=== PATIENT | female | born 1945 | race Two or more races ===

== ENCOUNTER 2024-03-19 18:54 | Inpatient (IN) | payer MEDICARE, MEDICAID ==
[~2024-03-19] VITALS: Ht 162.6 cm; Wt 75.1 kg
[2024-03-19] MEDS: ALBUTEROL SULFATE 2.5 MG/0.5 ML NEB SOLUTION NEB ONE (19:16)
[2024-03-19] MEDS: IPRATROPIUM BROMIDE 0.5 MG/2.5 ML NEB SOLUTION NEB ONE (19:17)
[2024-03-19 19:20] VITALS: PULSE 114; RESP 18; O2SAT 94
[2024-03-19] MEDS ORDERED: DULA1.5P SQ (19:22)
[2024-03-19] MEDS ORDERED: DICL100G60 TP (19:22)
[2024-03-19] MEDS ORDERED: ASPI-1450 PO (19:22)
[2024-03-19] MEDS ORDERED: CLOP75TA60 PO (19:22)
[2024-03-19] MEDS ORDERED: ATOR40TA28 PO (19:22)
[2024-03-19] MEDS ORDERED: METO25XL PO (19:22)
[2024-03-19] MEDS ORDERED: MELA3CAP2 PO (19:22)
[2024-03-19] MEDS ORDERED: EZET10TA57 PO (19:22)
[2024-03-19] MEDS ORDERED: PANT-31 PO (19:22)
[2024-03-19] MEDS ORDERED: MULT-1390 PO (19:22)
[2024-03-19] MEDS ORDERED: INSLAN SQ (19:22)
[2024-03-19] MEDS ORDERED: ONDA-104 PO (19:22)
[2024-03-19] MEDS ORDERED: ALBU18HF12 IH (19:22)
[2024-03-19] MEDS ORDERED: CALC-1124 PO (19:22)
[2024-03-19 19:35] VITALS: PULSE 114; RESP 18; O2SAT 97
[2024-03-19] MEDS: MethylPREDNISolone SOD SUCC 125 MG/2 ML VIAL IVP ONE (19:43)
[2024-03-19 19:53] LABS: BASOPHILS % (AUTO) 0.5 % (0.0-2.0); EOSINOPHILS % (AUTO) 0 % (1.0-6.0); HEMATOCRIT 35.6 % (36-46); LYMPHOCYTES # (AUTO) 0.7 K/uL (1.0-4.8); LYMPHOCYTES % (AUTO) 3.5 % (22.0-44.0); MEAN CORPUSCULAR HEMOGLOBIN 23.8 pg (26.0-34.0); MEAN CORPUSCULAR HGB CONC 30.9 G/dL (31.0-37.0); MEAN CORPUSCULAR VOLUME 77 fL (80-100); MONOCYTES # (AUTO) 1.6 K/uL (0.1-1.0); MONOCYTES % (AUTO) 8.4 % (2.0-9.0); PLATELET COUNT (AUTO) 399 K/uL (150-450); RED BLOOD CELL COUNT(AUTO) 4.63 MIL/uL (4.00-5.20); RED CELL DISTRIBUTION WIDTH 17.4 % (11.5-14.5); WHITE BLOOD COUNT (AUTO) 19.4 K/uL (4.5-11.0)
[2024-03-19 19:59] LABS: NEUTROPHILS % (AUTO) 87.6 % (40.0-70.0)
[2024-03-19 19:59] LABS: COVID AG,FIA SOURCE NASAL SWAB
[2024-03-19 20:01] LABS: ANION GAP 9 mmol/L (8-16); CALCIUM, TOTAL 8.6 mg/dL (8.8-10.5); CARBON DIOXIDE 26 mmol/L (22-29); CHLORIDE 100 mmol/L (98-107); GLOMERULAR FILTR. RATE CALC 44 mL/min (>60); GLUCOSE,RANDOM 236 mg/dL (70-110); POTASSIUM 4.3 mmol/L (3.5-5.1); SODIUM SERUM 135 mmol/L (136-145); UREA NITROGEN, BLOOD 26 mg/dL (7-18)
[2024-03-19] MEDS ORDERED: BACI1CAP PO (20:11)
[2024-03-19] MEDS ORDERED: ASPI-1444 PO (20:11)
[2024-03-19] MEDS ORDERED: ZINC28PA TP (20:11)
[2024-03-19] MEDS ORDERED: MELA3TAB89 PO (20:11)
[2024-03-19] MEDS ORDERED: CALC-1271 PO (20:11)
[2024-03-19] MEDS ORDERED: MULT-664 PO (20:11)
[2024-03-19 20:13] LABS: ALANINE AMINOTRANSFERASE 23 U/L (12-78); ALBUMIN 2.5 g/dL (3.4-5.0); ALKALINE PHOSPHATASE 125 U/L (46-116); ASPARTATE AMINOTRANSFERASE 47 U/L (15-37); BILIRUBIN,TOTAL 1.4 mg/dL (0.1-1.0); CREATINE KINASE, TOTAL ONLY 48 U/L (26-192); TOTAL PROTEIN, SERUM 6.8 g/dL (6.4-8.2); TROPONIN I-HIGH SENSITIVITY 16 ng/L (<51)
[2024-03-19 20:22] LABS: SARS-COV2 (COVID) ANTIGEN,FIA Negative (Negative)
[2024-03-19] MEDS: SODIUM CHLORIDE 0.9% 1,000 ML IV ONE (20:22)
[2024-03-19 20:24] LABS: B-TYPE NATRIURETIC PEPTIDE 1540 pg/mL (0-100)
[2024-03-19 20:26] LABS: INFLUENZA TYPE A NEGATIVE FOR TYPE A (NEGATIVE); INFLUENZA TYPE B NEGATIVE FOR TYPE B (NEGATIVE)
[2024-03-19 20:30] LABS: RBC MORPHOLOGY COMMENT ABNORMAL RBC MORPH
[2024-03-19 20:34] LABS: APPEARANCE,URINE CLEAR (CLEAR); BILIRUBIN,URINE NEGATIVE (NEGATIVE); COLOR,URINE YELLOW (YELLOW); GLUCOSE, URINE (UA) NEGATIVE (NEGATIVE); KETONES,URINE NEGATIVE (NEGATIVE); LEUKOCYTE ESTERASE ,URINE TRACE (NEGATIVE); NITRATE,URINE NEGATIVE (NEGATIVE); OCCULT BLOOD,URINE NEGATIVE (NEGATIVE); PH,URINE 5.5 (5.0-8.0); PROTEIN,URINE 30-70 mg/dL (NEGATIVE); SPECIFIC GRAVITIY, URINE 1.023 (1.003-1.030)
[2024-03-19] MEDS: CefTRIAXone 1 GM/DEXTROSE 50 ML IV SCH (20:45)
[2024-03-19] MEDS ORDERED: 0.9% SODIUM CHLORIDE 10 ML SYRINGE IVP PRN (20:45)
[2024-03-19] MEDS ORDERED: ONDANSETRON 4 MG TABLET PO PRN (20:45)
[2024-03-19 20:48] LABS: BACTERIA,URINE Moderate /HPF (None Seen); RBC,URINE None Seen /HPF (0-2); SQUAMOUS EPITHELIAL CELL,UR Rare /LPF (None Seen); WBC,URINE 0-2 /HPF (0-5)
[2024-03-19] MEDS: CefTRIAXone 1 GM/DEXTROSE 50 ML IV ONE (20:55)
[2024-03-19] MEDS: SODIUM CHLORIDE 0.9% 500 ML IV ONE (20:55)
[2024-03-19] MEDS ORDERED: DEXTROSE 50%-WATER 25 GM/50 ML SYRINGE IVP PRN (21:00)
[2024-03-19] MEDS: INSULIN GLARGINE,HUM.REC.ANLOG 100 UNITS/ML SQ SCH (21:13)
[2024-03-19] MEDS: DOXYCYCLINE HYCLATE 100 MG in DEXTROSE 5%-WATER 100 ML IV SCH (21:16)
[2024-03-19] MEDS: AZITHROMYCIN 500 MG/NS 250 ML IV ONE (21:16)
[2024-03-19 21:18] LABS: LACTIC ACID 1.9 mmol/L (0.4-2.0)
[2024-03-19 21:32] LABS: CALCIUM, TOTAL 8.5 mg/dL (8.8-10.5); CREATININE 1.09 mg/dL (0.60-1.30); POTASSIUM 4.1 mmol/L (3.5-5.1)
[2024-03-19 21:39] LABS: ALBUMIN 2.4 g/dL (3.4-5.0); BILIRUBIN,TOTAL 1.3 mg/dL (0.1-1.0); TOTAL PROTEIN, SERUM 6.5 g/dL (6.4-8.2)
[2024-03-19 22:23] VITALS: BP 114/83; PULSE 110; RESP 19; TEMP 98; O2SAT 96
[2024-03-19] MEDS: ONDANSETRON HCL 4 MG/2 ML VIAL IVP PRN (22:41)
[2024-03-19 22:45] LABS: GLUCOMETER DEV NAME(LOC) 5S.2D; GLUCOSE,POINT OF CARE 261 MG/DL (70-110)
[2024-03-19] MEDS: HEPARIN SODIUM,PORCINE 5,000 UNITS/ML VIAL SQ SCH (23:28)
[2024-03-19] MEDS: MELATONIN 3 MG TABLET PO PRN (23:31)
[2024-03-20 04:00] VITALS: BP 128/72; PULSE 99; RESP 18; TEMP 97.9; O2SAT 96
[2024-03-20 06:16] LABS: BASOPHILS % (AUTO) 0.1 % (0.0-2.0); EOSINOPHILS % (AUTO) 0 % (1.0-6.0); HEMATOCRIT 33.4 % (36-46); HEMOGLOBIN 10.3 g/dL (12.0-16.0); LYMPHOCYTES # (AUTO) 0.4 K/uL (1.0-4.8); LYMPHOCYTES % (AUTO) 2.8 % (22.0-44.0); MEAN CORPUSCULAR HEMOGLOBIN 23.6 pg (26.0-34.0); MEAN CORPUSCULAR HGB CONC 30.9 G/dL (31.0-37.0); MEAN CORPUSCULAR VOLUME 77 fL (80-100); MONOCYTES # (AUTO) 0.7 K/uL (0.1-1.0); NEUTROPHILS # (AUTO) 12.5 K/uL (1.8-7.7); PLATELET COUNT (AUTO) 365 K/uL (150-450); RED BLOOD CELL COUNT(AUTO) 4.36 MIL/uL (4.00-5.20); RED CELL DISTRIBUTION WIDTH 17.4 % (11.5-14.5); WHITE BLOOD COUNT (AUTO) 13.5 K/uL (4.5-11.0)
[2024-03-20 06:22] LABS: NEUTROPHILS % (AUTO) 92.1 % (40.0-70.0)
[2024-03-20] MEDS: INSULIN LISPRO 100 UNITS/ML SQ PRN (06:40)
[2024-03-20 07:50] VITALS: BP 124/65; PULSE 87; RESP 19; TEMP 98.2; O2SAT 96
[2024-03-20] MEDS: LACTOBAC ACID/BULG/BIFID/THERM TABLET PO SCH (08:10)
[2024-03-20] MEDS: ATORVASTATIN CALCIUM 40 MG TABLET PO SCH (08:11)
[2024-03-20] MEDS: ASPIRIN 81 MG DR TABLET PO SCH (08:11)
[2024-03-20] MEDS: CALCIUM CARBONATE 648 MG TABLET PO SCH (08:11)
[2024-03-20] MEDS: CHOLECALCIFEROL (VIT D3) 400 UNITS [10 MCG] TABLET PO SCH (08:12)
[2024-03-20] MEDS: CLOPIDOGREL BISULFATE 75 MG TABLET PO SCH (08:13)
[2024-03-20] MEDS: EZETIMIBE 10 MG TABLET PO SCH (08:18)
[2024-03-20] MEDS: PANTOPRAZOLE SODIUM 40 MG DR TABLET PO SCH (08:18)
[2024-03-20] MEDS: METOPROLOL SUCCINATE 25 MG ER TABLET PO SCH (08:19)
[2024-03-20 08:35] LABS: RBC MORPHOLOGY COMMENT ABNORMAL RBC MORPH
[2024-03-20 11:23] VITALS: BP 100/69; PULSE 82; RESP 18; TEMP 97.4; O2SAT 96
[2024-03-20] MEDS: FUROSEMIDE 20 MG TABLET PO SCH (11:47)
[2024-03-20 12:25] LABS: GLUCOMETER DEV NAME(LOC) ER.7; GLUCOSE,POINT OF CARE 228 MG/DL (70-110)
[2024-03-20 12:31] LABS: GLUCOMETER DEV NAME(LOC) 5N.2C; GLUCOSE,POINT OF CARE 229 MG/DL (70-110)
[2024-03-20 12:31] LABS: GLUCOMETER DEV NAME(LOC) 5S.2D; GLUCOSE,POINT OF CARE 186 MG/DL (70-110)
[2024-03-20 15:12] VITALS: BP 143/68; PULSE 89; RESP 19; TEMP 97.6; O2SAT 99
[2024-03-20 17:11] LABS: GLUCOMETER DEV NAME(LOC) 5N.2C; GLUCOSE,POINT OF CARE 271 MG/DL (70-110)
[2024-03-20 20:06] VITALS: BP 112/72; PULSE 92; RESP 18; TEMP 97.1; O2SAT 97
[2024-03-20 23:50] VITALS: BP 108/67; PULSE 90; RESP 19; TEMP 96.2; O2SAT 97
[2024-03-21 04:09] VITALS: BP 111/70; PULSE 86; RESP 18; TEMP 97.1; O2SAT 98
[2024-03-21 04:26] LABS: GLUCOMETER DEV NAME(LOC) 5N.2C; GLUCOSE,POINT OF CARE 204 MG/DL (70-110)
[2024-03-21] MEDS: EZETIMIBE 10 MG TABLET PO SCH (08:17)
[2024-03-21 08:24] VITALS: BP 112/69; PULSE 89; RESP 18; TEMP 98.8; O2SAT 95
[2024-03-21 09:01] LABS: GLUCOMETER DEV NAME(LOC) 5N.2C; GLUCOSE,POINT OF CARE 147 MG/DL (70-110)
[2024-03-21 11:28] VITALS: BP 118/72; PULSE 93; RESP 19; TEMP 97.8; O2SAT 100
[2024-03-21] MEDS: FUROSEMIDE 20 MG/2 ML VIAL IVP SCH (12:05)
[2024-03-21 15:44] VITALS: BP 109/66; PULSE 90; RESP 19; TEMP 97.6; O2SAT 97
[2024-03-21 17:00] LABS: GLUCOMETER DEV NAME(LOC) 5S.2D; GLUCOSE,POINT OF CARE 212 MG/DL (70-110)
[2024-03-21 17:00] LABS: GLUCOMETER DEV NAME(LOC) 5S.2D; GLUCOSE,POINT OF CARE 189 MG/DL (70-110)
[2024-03-21 19:34] VITALS: BP 122/73; PULSE 97; RESP 19; TEMP 97.2; O2SAT 100
[2024-03-21 23:22] VITALS: BP 120/75; PULSE 97; RESP 18; TEMP 97.4; O2SAT 99
[2024-03-21 23:35] LABS: GLUCOMETER DEV NAME(LOC) 5N.1D; GLUCOSE,POINT OF CARE 182 MG/DL (70-110)
[2024-03-22] VITALS (7 sets, daily range): BP systolic 109–144; BP diastolic 52–84; PULSE 83–100; RESP 18–20; TEMP 97.4–98.4; O2SAT 95–100
[2024-03-22 06:37] LABS: EOSINOPHILS % (AUTO) 0.2 % (1.0-6.0); HEMATOCRIT 35.2 % (36-46); HEMOGLOBIN 10.7 g/dL (12.0-16.0); LYMPHOCYTES # (AUTO) 0.8 K/uL (1.0-4.8); LYMPHOCYTES % (AUTO) 4.7 % (22.0-44.0); MEAN CORPUSCULAR HEMOGLOBIN 23.3 pg (26.0-34.0); MEAN CORPUSCULAR HGB CONC 30.6 G/dL (31.0-37.0); MEAN CORPUSCULAR VOLUME 76 fL (80-100); MONOCYTES # (AUTO) 1.7 K/uL (0.1-1.0); MONOCYTES % (AUTO) 10.3 % (2.0-9.0); NEUTROPHILS # (AUTO) 13.9 K/uL (1.8-7.7); NEUTROPHILS % (AUTO) 84.8 % (40.0-70.0); PLATELET COUNT (AUTO) 414 K/uL (150-450); RED BLOOD CELL COUNT(AUTO) 4.61 MIL/uL (4.00-5.20); RED CELL DISTRIBUTION WIDTH 17.4 % (11.5-14.5); WHITE BLOOD COUNT (AUTO) 16.4 K/uL (4.5-11.0)
[2024-03-22 06:49] LABS: ANION GAP 8 mmol/L (8-16); CARBON DIOXIDE 25 mmol/L (22-29); CHLORIDE 101 mmol/L (98-107); CREATININE 1.07 mg/dL (0.60-1.30); GLOMERULAR FILTR. RATE CALC 50 mL/min (>60); GLUCOSE,RANDOM 135 mg/dL (70-110); POTASSIUM 4.4 mmol/L (3.5-5.1); SODIUM SERUM 134 mmol/L (136-145); TROPONIN I-HIGH SENSITIVITY 15 ng/L (<51); UREA NITROGEN, BLOOD 34 mg/dL (7-18)
[2024-03-22] MEDS: LOSARTAN POTASSIUM 25 MG TABLET PO SCH (09:49)
[2024-03-22 09:51] LABS: GLUCOMETER DEV NAME(LOC) 5N.1D; GLUCOSE,POINT OF CARE 131 MG/DL (70-110)
[2024-03-22] MEDS: FUROSEMIDE 20 MG TABLET PO SCH (09:51)
[2024-03-22] MEDS: SPIRONOLACTONE 25 MG TABLET PO SCH (09:51)
[2024-03-22 11:51] LABS: GLUCOMETER DEV NAME(LOC) 5N.1D; GLUCOSE,POINT OF CARE 107 MG/DL (70-110)
[2024-03-22] MEDS: *CLINICAL-MEROPENEM DOSING CLINICAL ONE (16:50)
[2024-03-22 17:20] LABS: GLUCOMETER DEV NAME(LOC) 5N.2C; GLUCOSE,POINT OF CARE 72 MG/DL (70-110)
[2024-03-22] MEDS: MEROPENEM 1 GM in SODIUM CHLORIDE 0.9% 50 ML IV SCH (17:35)
[2024-03-22 20:46] LABS: GLUCOMETER DEV NAME(LOC) 5N.2C; GLUCOSE,POINT OF CARE 118 MG/DL (70-110)
[2024-03-23 03:22] VITALS: BP 109/65; PULSE 95; RESP 20; TEMP 97.5; O2SAT 100
[2024-03-23 06:00] LABS: GLUCOMETER DEV NAME(LOC) 5N.1D; GLUCOSE,POINT OF CARE 139 MG/DL (70-110)
[2024-03-23 07:20] VITALS: BP 108/63; PULSE 96; RESP 18; TEMP 98; O2SAT 98
[2024-03-23 11:57] VITALS: BP 109/64; PULSE 93; RESP 18; TEMP 98; O2SAT 97
[2024-03-23 12:10] LABS: GLUCOMETER DEV NAME(LOC) 5N.1D; GLUCOSE,POINT OF CARE 173 MG/DL (70-110)
[2024-03-23 15:36] VITALS: BP 116/68; PULSE 90; RESP 18; TEMP 98; O2SAT 98
[2024-03-23 17:12] VITALS: BP 112/70; PULSE 94; RESP 18; TEMP 97.8; O2SAT 97
[2024-03-23 22:00] VITALS: BP 121/75; PULSE 92; RESP 18; TEMP 98.2; O2SAT 100
[2024-03-24] VITALS (7 sets, daily range): BP systolic 102–121; BP diastolic 61–78; PULSE 68–91; RESP 16–20; TEMP 96.7–98.2; O2SAT 95–98
[2024-03-24 07:06] LABS: GLUCOMETER DEV NAME(LOC) 5N.2C; GLUCOSE,POINT OF CARE 165 MG/DL (70-110)
[2024-03-24 07:06] LABS: GLUCOMETER DEV NAME(LOC) 5N.2C; GLUCOSE,POINT OF CARE 92 MG/DL (70-110)
[2024-03-24 07:06] LABS: GLUCOMETER DEV NAME(LOC) 5N.2C; GLUCOSE,POINT OF CARE 147 MG/DL (70-110)
[2024-03-24] MEDS: ACETAMINOPHEN 325 MG TABLET PO PRN (12:43)
[2024-03-24 16:09] LABS: BASOPHILS % (AUTO) 0.3 % (0.0-2.0); EOSINOPHILS % (AUTO) 0.9 % (1.0-6.0); HEMATOCRIT 33.3 % (36-46); HEMOGLOBIN 10.2 g/dL (12.0-16.0); LYMPHOCYTES # (AUTO) 0.7 K/uL (1.0-4.8); LYMPHOCYTES % (AUTO) 4.3 % (22.0-44.0); MEAN CORPUSCULAR HEMOGLOBIN 23.2 pg (26.0-34.0); MEAN CORPUSCULAR HGB CONC 30.7 G/dL (31.0-37.0); MEAN CORPUSCULAR VOLUME 76 fL (80-100); MONOCYTES # (AUTO) 1.2 K/uL (0.1-1.0); MONOCYTES % (AUTO) 7.6 % (2.0-9.0); NEUTROPHILS # (AUTO) 14.2 K/uL (1.8-7.7); PLATELET COUNT (AUTO) 409 K/uL (150-450); RED CELL DISTRIBUTION WIDTH 17.8 % (11.5-14.5); WHITE BLOOD COUNT (AUTO) 16.3 K/uL (4.5-11.0)
[2024-03-24 16:10] LABS: NEUTROPHILS % (AUTO) 86.9 % (40.0-70.0)
[2024-03-24 16:18] LABS: CALCIUM, TOTAL 8.1 mg/dL (8.8-10.5); CREATININE 0.95 mg/dL (0.60-1.30); POTASSIUM 4.2 mmol/L (3.5-5.1)
[2024-03-24 16:24] LABS: ALBUMIN 1.9 g/dL (3.4-5.0); BILIRUBIN,TOTAL 0.8 mg/dL (0.1-1.0); TOTAL PROTEIN, SERUM 5.9 g/dL (6.4-8.2)
[2024-03-24 16:33] LABS: PLATELET MORPHOLOGY COMMENT LARGE PLTS PRESENT; RBC MORPHOLOGY COMMENT ABNORMAL RBC MORPH
[2024-03-24 17:20] LABS: GLUCOMETER DEV NAME(LOC) 5N.2C; GLUCOSE,POINT OF CARE 144 MG/DL (70-110)
[2024-03-24 20:45] LABS: GLUCOMETER DEV NAME(LOC) 5S.2D; GLUCOSE,POINT OF CARE 108 MG/DL (70-110)
[2024-03-24 22:41] LABS: GLUCOMETER DEV NAME(LOC) 5N.1D; GLUCOSE,POINT OF CARE 129 MG/DL (70-110)
[2024-03-25 00:46] VITALS: BP 106/63; PULSE 84; RESP 20; TEMP 98; O2SAT 99
[2024-03-25 06:15] LABS: GLUCOMETER DEV NAME(LOC) 5N.1D; GLUCOSE,POINT OF CARE 82 MG/DL (70-110)
[2024-03-25 07:59] VITALS: BP 124/64; PULSE 82; RESP 19; TEMP 98.1; O2SAT 97
[2024-03-25 11:11] VITALS: BP 116/67; PULSE 80; RESP 18; TEMP 98; O2SAT 98
[2024-03-25 13:11] LABS: GLUCOMETER DEV NAME(LOC) 5N.2C; GLUCOSE,POINT OF CARE 109 MG/DL (70-110)
[2024-03-25 15:07] VITALS: BP 119/72; PULSE 76; RESP 19; TEMP 98.1; O2SAT 97
[2024-03-25 18:25] LABS: GLUCOMETER DEV NAME(LOC) 5N.2C; GLUCOSE,POINT OF CARE 135 MG/DL (70-110)
[2024-03-25 19:41] VITALS: BP 134/81; PULSE 84; RESP 18; TEMP 98.1; O2SAT 98
[2024-03-25 21:00] LABS: GLUCOMETER DEV NAME(LOC) 5N.2C; GLUCOSE,POINT OF CARE 155 MG/DL (70-110)
[2024-03-25 23:49] VITALS: BP 114/59; PULSE 90; RESP 19; TEMP 98.1; O2SAT 98
[2024-03-26 04:50] VITALS: BP 124/78; PULSE 92; RESP 20; TEMP 98.1; O2SAT 98
[2024-03-26 06:50] LABS: GLUCOMETER DEV NAME(LOC) 5N.2C; GLUCOSE,POINT OF CARE 128 MG/DL (70-110)
[2024-03-26 08:39] VITALS: BP 129/76; PULSE 76; RESP 19; TEMP 98; O2SAT 96
[2024-03-26 11:56] VITALS: BP 119/64; PULSE 90; RESP 19; TEMP 98.2; O2SAT 97
[2024-03-26 15:00] VITALS: BP 123/71; PULSE 82; RESP 18; TEMP 98; O2SAT 97
[2024-03-26] MEDS: GuaiFENesin/D-METHORPHAN/PHENYLEPH 5 ML LIQUID ORAL.SYG PO PRN (18:30)
[2024-03-26 19:50] VITALS: BP 100/64; PULSE 85; RESP 19; TEMP 97.6; O2SAT 98
[2024-03-26 22:00] LABS: GLUCOMETER DEV NAME(LOC) 5N.2C; GLUCOSE,POINT OF CARE 143 MG/DL (70-110)
[2024-03-27] VITALS (9 sets, daily range): BP systolic 113–133; BP diastolic 64–76; PULSE 87–96; RESP 17–20; TEMP 97.4–98.6; O2SAT 88–98
[2024-03-27 12:10] LABS: GLUCOMETER DEV NAME(LOC) 5N.2C; GLUCOSE,POINT OF CARE 99 MG/DL (70-110)
[2024-03-27 12:10] LABS: GLUCOMETER DEV NAME(LOC) 5N.2C; GLUCOSE,POINT OF CARE 116 MG/DL (70-110)
[2024-03-27 19:55] LABS: GLUCOMETER DEV NAME(LOC) 5N.2C; GLUCOSE,POINT OF CARE 114 MG/DL (70-110)
[2024-03-28 00:36] VITALS: BP 109/67; PULSE 77; RESP 20; TEMP 97.9; O2SAT 96
[2024-03-28 04:26] LABS: GLUCOMETER DEV NAME(LOC) 5N.2C; GLUCOSE,POINT OF CARE 101 MG/DL (70-110)
[2024-03-28 06:12] VITALS: BP 118/71; PULSE 93; RESP 19; TEMP 98; O2SAT 97
[2024-03-28 08:41] VITALS: BP 99/64; PULSE 88; RESP 18; TEMP 97.8; O2SAT 96
[2024-03-28 11:30] LABS: GLUCOMETER DEV NAME(LOC) 5N.2C; GLUCOSE,POINT OF CARE 71 MG/DL (70-110)
[2024-03-28 11:30] LABS: GLUCOMETER DEV NAME(LOC) 5N.2C; GLUCOSE,POINT OF CARE 77 MG/DL (70-110)
[2024-03-28 12:01] VITALS: BP 96/59; PULSE 92; RESP 20; TEMP 98.3; O2SAT 100
[2024-03-28 12:26] LABS: BASOPHILS % (AUTO) 0.7 % (0.0-2.0); EOSINOPHILS % (AUTO) 0.4 % (1.0-6.0); HEMATOCRIT 34.5 % (36-46); HEMOGLOBIN 10.7 g/dL (12.0-16.0); LYMPHOCYTES # (AUTO) 0.7 K/uL (1.0-4.8); LYMPHOCYTES % (AUTO) 4.9 % (22.0-44.0); MEAN CORPUSCULAR HEMOGLOBIN 23.3 pg (26.0-34.0); MEAN CORPUSCULAR VOLUME 75 fL (80-100); MONOCYTES # (AUTO) 1.2 K/uL (0.1-1.0); MONOCYTES % (AUTO) 9.3 % (2.0-9.0); NEUTROPHILS # (AUTO) 11.3 K/uL (1.8-7.7); NEUTROPHILS % (AUTO) 84.7 % (40.0-70.0); PLATELET COUNT (AUTO) 550 K/uL (150-450); RED BLOOD CELL COUNT(AUTO) 4.59 MIL/uL (4.00-5.20); RED CELL DISTRIBUTION WIDTH 17.8 % (11.5-14.5); WHITE BLOOD COUNT (AUTO) 13.4 K/uL (4.5-11.0)
[2024-03-28 12:36] LABS: ANION GAP 5 mmol/L (8-16); CALCIUM, TOTAL 8.5 mg/dL (8.8-10.5); CARBON DIOXIDE 30 mmol/L (22-29); CHLORIDE 99 mmol/L (98-107); CREATININE 0.75 mg/dL (0.60-1.30); GLOMERULAR FILTR. RATE CALC > 60 mL/min (>60); GLUCOSE,RANDOM 93 mg/dL (70-110); POTASSIUM 4.4 mmol/L (3.5-5.1); SODIUM SERUM 134 mmol/L (136-145); UREA NITROGEN, BLOOD 21 mg/dL (7-18)
[2024-03-28 12:39] LABS: ALANINE AMINOTRANSFERASE 24 U/L (12-78); ALKALINE PHOSPHATASE 102 U/L (46-116); ASPARTATE AMINOTRANSFERASE 39 U/L (15-37); BILIRUBIN,TOTAL 0.9 mg/dL (0.1-1.0); TOTAL PROTEIN, SERUM 6.2 g/dL (6.4-8.2)
[2024-03-28 16:15] VITALS: BP 114/62; PULSE 94; RESP 19; TEMP 97.5; O2SAT 100
[2024-03-28 17:36] LABS: GLUCOMETER DEV NAME(LOC) 5S.2D; GLUCOSE,POINT OF CARE 116 MG/DL (70-110)
[2024-03-28 17:36] LABS: GLUCOMETER DEV NAME(LOC) 5S.2D; GLUCOSE,POINT OF CARE 113 MG/DL (70-110)
[2024-03-28 20:05] VITALS: BP 128/76; PULSE 104; RESP 19; TEMP 97.6; O2SAT 99
[2024-03-29] VITALS: BP 149/82; PULSE 118; RESP 19; TEMP 96.7; O2SAT 100
[2024-03-29 01:56] LABS: GLUCOMETER DEV NAME(LOC) 5S.2D; GLUCOSE,POINT OF CARE 122 MG/DL (70-110)
[2024-03-29 04:00] VITALS: BP 119/57; PULSE 99; RESP 18; TEMP 98.1; O2SAT 95
[2024-03-29 14:28] LABS: BASOPHILS % (AUTO) 0.6 % (0.0-2.0); EOSINOPHILS % (AUTO) 0.1 % (1.0-6.0); HEMATOCRIT 34.1 % (36-46); HEMOGLOBIN 10.6 g/dL (12.0-16.0); LYMPHOCYTES # (AUTO) 0.6 K/uL (1.0-4.8); LYMPHOCYTES % (AUTO) 4.5 % (22.0-44.0); MEAN CORPUSCULAR HEMOGLOBIN 23.4 pg (26.0-34.0); MEAN CORPUSCULAR HGB CONC 31.1 G/dL (31.0-37.0); MEAN CORPUSCULAR VOLUME 75 fL (80-100); MONOCYTES # (AUTO) 1.2 K/uL (0.1-1.0); MONOCYTES % (AUTO) 8.1 % (2.0-9.0); NEUTROPHILS # (AUTO) 12.3 K/uL (1.8-7.7); PLATELET COUNT (AUTO) 527 K/uL (150-450); RED BLOOD CELL COUNT(AUTO) 4.55 MIL/uL (4.00-5.20); RED CELL DISTRIBUTION WIDTH 18.4 % (11.5-14.5); WHITE BLOOD COUNT (AUTO) 14.2 K/uL (4.5-11.0)
[2024-03-29 14:31] LABS: NEUTROPHILS % (AUTO) 86.7 % (40.0-70.0)
[2024-03-29 14:32] LABS: RBC MORPHOLOGY COMMENT ABNORMAL RBC MORPH
[2024-03-29 14:41] LABS: CALCIUM, TOTAL 8.5 mg/dL (8.8-10.5); CREATININE 0.91 mg/dL (0.60-1.30); POTASSIUM 4.5 mmol/L (3.5-5.1)
[2024-03-29 14:44] LABS: ALBUMIN 2.1 g/dL (3.4-5.0); BILIRUBIN,TOTAL 0.9 mg/dL (0.1-1.0); TOTAL PROTEIN, SERUM 6.4 g/dL (6.4-8.2)
[2024-03-29 18:10] LABS: GLUCOMETER DEV NAME(LOC) 5S.2D; GLUCOSE,POINT OF CARE 104 MG/DL (70-110)
[2024-03-29 20:07] VITALS: BP 142/97; PULSE 92; RESP 18; TEMP 97.9; O2SAT 95
[2024-03-29 21:21] LABS: GLUCOMETER DEV NAME(LOC) 6S.1D; GLUCOSE,POINT OF CARE 152 MG/DL (70-110)
[2024-03-30 05:18] VITALS: BP 110/57; PULSE 88; RESP 18; TEMP 97.9; O2SAT 95
[2024-03-30 09:25] VITALS: BP 121/62; PULSE 89; RESP 18; TEMP 97.5; O2SAT 95
[2024-03-30 14:26] LABS: GLUCOMETER DEV NAME(LOC) 6S.2; GLUCOSE,POINT OF CARE 97 MG/DL (70-110)
[2024-03-30 14:26] LABS: GLUCOMETER DEV NAME(LOC) 6S.1D; GLUCOSE,POINT OF CARE 123 MG/DL (70-110)
[2024-03-31] MEDS ORDERED: FURO20TA5 PO (14:39)
== END 2024-03-30 18:10 | disposition home health service (06) | DRG 871 ==
LOC: EMS 18:54 → EDH 20:40 → 5N 22:29 → 6S 03-29 12:35
PROVIDERS: ADMIT Internal Medicine; ATTEND Internal Medicine
DX: A41.9 Sepsis, unspecified organism (principal); G92.8 Other toxic encephalopathy; I50.23 Acute on chronic systolic (congestive) heart failure; J96.01 Acute respiratory failure with hypoxia; J69.0 Pneumonitis due to inhalation of food and vomit; R53.2 Functional quadriplegia; R17 Unspecified jaundice; N39.0 Urinary tract infection, site not specified; Z16.12 Extended spectrum beta lactamase (ESBL) resistance; I69.351 Hemiplegia and hemiparesis following cerebral infarction affecting right dominant side; J45.901 Unspecified asthma with (acute) exacerbation; Z20.822 Contact with and (suspected) exposure to COVID-19; G83.9 Paralytic syndrome, unspecified; I44.7 Left bundle-branch block, unspecified; I08.1 Rheumatic disorders of both mitral and tricuspid valves; E11.9 Type 2 diabetes mellitus without complications; F20.9 Schizophrenia, unspecified; I48.0 Paroxysmal atrial fibrillation; E78.5 Hyperlipidemia, unspecified; I11.0 Hypertensive heart disease with heart failure; H91.90 Unspecified hearing loss, unspecified ear; B96.20 Unspecified Escherichia coli [E. coli] as the cause of diseases classified elsewhere; Z79.4 Long term (current) use of insulin; Z74.01 Bed confinement status; Z78.9 Other specified health status; Z91.148 Patient's other noncompliance with medication regimen for other reason; Z95.1 Presence of aortocoronary bypass graft
CPT/HCPCS: 71045; 80048; 80053; 80076; 81001; 82550; 82962; 83605; 83615; 83735; 83880; 84145; 84484; 85025; 85730; 87040; 87077; 87086; 87186; 87804; 93005; 93306; 94640; 97110; 97162; 97166; 97530; 99285; G0378; J0456; J0696; J1644; J1815; J1940; J2185; J2405; J2919; J3490; J7030; J7050; J7060; Q0162; 36415-L1; 36415-TC; J7613